=== PATIENT | male | born 1950 | race Caucasian/White ===

== ENCOUNTER 2022-11-30 08:19 | Emergency (ER) | payer MEDICARE, OTHER ==
[~2022-11-30] VITALS: Ht 180.3 cm; Wt 87.7 kg
[2022-11-30] MEDS ORDERED: ondansetron/PF 4mg/2ml inj IV ONE (08:40)
[2022-11-30] MEDS ORDERED: normal saline 1000ML IV soln IVB ONE (08:40)
[2022-11-30 08:55] LABS: BASOPHILS % (AUTO) 0.6 % (0-1); EOSINOPHILS # (AUTO) 0.1 X10'3 (0-0.9); EOSINOPHILS % (AUTO) 1.8 % (0-6); HEMOGLOBIN 11.7 g/dl (14.0-17.9); LYMPHOCYTES # (AUTO) 0.3 X10'3 (1.1-4.8); LYMPHOCYTES % (AUTO) 9.9 % (21-51); MEAN CORPUSCULAR HEMOGLOBIN 26.6 PG (27.0-31.0); MEAN CORPUSCULAR HGB CONC 32.6 g/dL (33.0-36.5); MEAN CORPUSCULAR VOLUME 81.7 FL (78-98); MEAN PLATELET VOLUME 7.7 FL (7.4-10.4); MONOCYTES # (AUTO) 0.3 X10'3 (0-0.9); MONOCYTES % (AUTO) 9.6 % (2-12); NEUTROPHILS # (AUTO) 2.4 X10'3 (1.8-7.7); NEUTROPHILS % (AUTO) 78.1 % (42-75); PLATELET COUNT 266 X10'3 (140-440); RED CELL DISTRIBUTION WIDTH 19.6 % (11.5-14.5); WHITE BLOOD COUNT 3.1 X10'3 (4.5-11.0)
[2022-11-30 09:12] LABS: ALANINE AMINOTRANSFERASE 21 U/L (12-78); ALBUMIN 3.5 G/DL (3.4-5.0); ALBUMIN/GLOBULIN RATIO 0.9 (1.1-1.5); ALKALINE PHOSPHATASE 121 IU/L (46-116); ANION GAP 9 (8-16); ASPARTATE AMINO TRANSFERASE 22 U/L (10-37); BILIRUBIN,TOTAL 0.8 MG/DL (0.1-1.0); BLOOD UREA NITROGEN 11 MG/DL (7-18); BUN/CREATININE RATIO 12.5 (5.4-32.0); CALCIUM 9.3 MG/DL (8.5-10.1); CHLORIDE 102 MMOL/L (99-107); CREATININE 0.88 MG/DL (0.60-1.10); GLUCOSE 134 MG/DL (70-104); LIPASE 488 U/L (73-393); POTASSIUM 3.9 MMOL/L (3.5-5.1); SODIUM 137 MMOL/L (135-145); TOTAL CARBON DIOXIDE 25.9 MMOL/L (24-32); TOTAL PROTEIN 7.5 G/DL (6.4-8.2); eGFR 85 ML/MIN
[2022-11-30 09:26] LABS: CLARITY,URINE CLEAR (Clear); COLOR,URINE YELLOW (Yellow); GLUCOSE, URINE NEGATIVE (Neg); KETONES,URINE NEGATIVE (Neg); LEUKOCYTE ESTERASE ,URINE NEGATIVE (Neg); NITRITES, URINE NEGATIVE (Neg); OCCULT BLOOD,URINE NEGATIVE (Neg); PH,URINE >=9.0 (4.8-8.0); PROTEIN,URINE NEGATIVE (Neg); UROBILINOGEN,URINE 0.2 E.U/dL (0.2-1.0)
[2022-11-30 09:28] LABS: UA COLLECTION TYPE CLN CATCH MIDSTREAM
[2022-11-30 09:44] LABS: PLATELET ESTIMATE NORMAL
[2022-11-30 09:45] LABS: ANISOCYTOSIS 2+; ELLIPTOCYTES FEW; TEAR DROP CELLS FEW
[2022-11-30] MEDS ORDERED: dicyclomine 10 MG capsule PO ONE (09:45)
[2022-11-30] MEDS ORDERED: metoclopramide 5 mg/ml inj IV ONE (09:45)
--- NOTE | 2022-11-30 09:52 | NUR ---
US tech at bedside.
--- NOTE | 2022-11-30 10:41 | NUR ---
Patient to MRI via wheelchair at this time.
[2022-11-30] MEDS ORDERED: ketorolac trometh. 30mg/ml inj. IV ONE (13:25)
[2022-11-30 13:47] VITALS: BP 151/87
== END 2022-11-30 13:49 | disposition home or self-care (01) ==
LOC: ER 08:20
DX: K85.90 Acute pancreatitis without necrosis or infection, unspecified (principal); I10 Essential (primary) hypertension; Z90.49 Acquired absence of other specified parts of digestive tract
CPT/HCPCS: 36415; 76700; 80053; 81003; 83690; 85008; 85025; 96361; 96374; 96375; 99285; J1885; J2405; J2765; J7030

== ENCOUNTER 2022-12-17 14:19 | Emergency (ER) | payer MEDICARE, OTHER ==
[2022-12-18] MEDS ORDERED: OXYB5TAB16 PO (04:38)
== END 2022-12-17 16:38 | disposition left against medical advice (07) ==
LOC: ER 14:20
DX: N30.90 Cystitis, unspecified without hematuria (principal); Z53.21 Procedure and treatment not carried out due to patient leaving prior to being seen by health care provider

== ENCOUNTER 2022-12-17 23:17 | Emergency (ER) | payer MEDICARE ==
[2022-12-18] MEDS ORDERED: OXYB5TAB16 PO (04:38)
== END 2022-12-18 00:53 | disposition left against medical advice (07) ==
LOC: ER 23:18
DX: E86.0 Dehydration (principal); Z53.21 Procedure and treatment not carried out due to patient leaving prior to being seen by health care provider

== ENCOUNTER 2022-12-18 03:24 | Emergency (ER) | payer MEDICARE, OTHER ==
[~2022-12-18] VITALS: Ht 180.3 cm; Wt 88.6 kg
[2022-12-18 04:03] LABS: CLARITY,URINE CLEAR (Clear); COLOR,URINE YELLOW (Yellow); GLUCOSE, URINE NEGATIVE (Neg); KETONES,URINE NEGATIVE (Neg); LEUKOCYTE ESTERASE ,URINE NEGATIVE (Neg); NITRITES, URINE NEGATIVE (Neg); OCCULT BLOOD,URINE NEGATIVE (Neg); PH,URINE 7.5 (4.8-8.0); PROTEIN,URINE NEGATIVE (Neg)
[2022-12-18] MEDS ORDERED: normal saline 1000ml 1,000 ML IV ONE (04:10)
[2022-12-18 04:16] LABS: UA COLLECTION TYPE CLN CATCH MIDSTREAM
[2022-12-18] MEDS ORDERED: OXYB5TAB16 PO (04:38)
[2022-12-18] MEDS ORDERED: oxybutynin 5mg tablet PO ONE (04:40)
[2022-12-18 05:35] VITALS: BP 135/81
== END 2022-12-18 05:38 | disposition home or self-care (01) ==
LOC: ER 03:25
DX: E86.0 Dehydration (principal); R35.0 Frequency of micturition; I10 Essential (primary) hypertension; Z90.49 Acquired absence of other specified parts of digestive tract
CPT/HCPCS: 81003; 96360; 99284; J7030